=== PATIENT | female | born 1945 | race Caucasian/White ===

== ENCOUNTER → 2016-06-13 | Outpatient (CLI) | payer MEDICARE | END | disposition home or self-care (01) | LOC: PCVCCLINIC 09:58 | PROVIDERS: ATTEND Internal Medicine | DX: I10 Essential (primary) hypertension (principal); I31.3 Pericardial effusion (noninflammatory); E78.5 Hyperlipidemia, unspecified; E11.9 Type 2 diabetes mellitus without complications; Z95.0 Presence of cardiac pacemaker | CPT/HCPCS: 80061; 93005; G0463 ==

== ENCOUNTER → 2017-06-23 | Outpatient (CLI) | payer MEDICARE | END | disposition home or self-care (01) | LOC: PCVCCLINIC 13:25 | DX: I10 Essential (primary) hypertension (principal); I44.30 Unspecified atrioventricular block; I31.3 Pericardial effusion (noninflammatory); E78.5 Hyperlipidemia, unspecified; E11.9 Type 2 diabetes mellitus without complications; Z95.0 Presence of cardiac pacemaker | CPT/HCPCS: 80061; 93005; G0463 ==

== ENCOUNTER → 2017-12-24 | Outpatient (CLI) | payer MEDICARE | END | disposition home or self-care (01) | LOC: PCVCCLINIC 13:31 | PROVIDERS: ATTEND Internal Medicine | DX: I44.30 Unspecified atrioventricular block (principal); I31.3 Pericardial effusion (noninflammatory); I10 Essential (primary) hypertension; E78.5 Hyperlipidemia, unspecified; E11.9 Type 2 diabetes mellitus without complications; Z95.0 Presence of cardiac pacemaker | CPT/HCPCS: 80061; 93005; G0463 ==

== ENCOUNTER → 2018-06-01 | Outpatient (CLI) | payer MEDICARE | END | disposition home or self-care (01) | LOC: PCVCCLINIC 09:59 | PROVIDERS: ATTEND Internal Medicine | DX: I44.30 Unspecified atrioventricular block (principal); R94.31 Abnormal electrocardiogram [ECG] [EKG]; I10 Essential (primary) hypertension; E11.9 Type 2 diabetes mellitus without complications; I31.3 Pericardial effusion (noninflammatory); Z95.0 Presence of cardiac pacemaker; Z88.8 Allergy status to other drugs, medicaments and biological substances | CPT/HCPCS: 36415; 80061; 93005; 93280; G0463 ==

== ENCOUNTER → 2018-11-30 | Outpatient (CLI) | payer MEDICARE | END | disposition home or self-care (01) | LOC: PCVCCLINIC 10:00 | PROVIDERS: ATTEND Internal Medicine | DX: I44.30 Unspecified atrioventricular block (principal); E11.9 Type 2 diabetes mellitus without complications; E78.5 Hyperlipidemia, unspecified; I10 Essential (primary) hypertension; I31.3 Pericardial effusion (noninflammatory); Z95.0 Presence of cardiac pacemaker; Z91.048 Other nonmedicinal substance allergy status; Z79.899 Other long term (current) drug therapy | CPT/HCPCS: 36415; 80061; 93005; 93280; G0463 ==